=== PATIENT | female | born 1975 | race Caucasian/White ===

== ENCOUNTER 2017-08-07 16:37 | Emergency (ER) | payer MEDICAID, OTHER ==
[~2017-08-07] VITALS: Ht 162.6 cm; Wt 58.5 kg
[2017-08-07 17:46] VITALS: Ht 162.6 cm; Wt 58.5 kg
--- NOTE | 2017-08-07 18:54 | ERA ---
ER Documentation Chief Complaint Date/Time DATE: 08/07/17 TIME: 18:54 Chief Complaint SOB AND R/O UTI HPI The patient is a 42-year-old female, presenting to the ER because of fever, shortness of breath from coughing, intermittent dry cough for the last 4 days, nausea but no vomiting. She was treated for kidney infection and bronchitis about a month ago. He denies abdominal pain, dysuria, diarrhea, constipation. She does not smoke nor drink Past medical history: None Past surgical history: ROS All systems reviewed and are negative except as per history of present illness. Medications Home Meds Active Scripts Dextromethorphan Hb-Promethazine Hcl* (Promethazine DM* Syrup) 473 Ml Syrup, 10 ML PO Q6 Y for COUGH, #120 ML Prov:MONO STYLES MD 08/07/17 Ibuprofen* (Motrin*) 600 Mg Tab, 600 MG PO Q6, #30 TAB Prov:MONO STYLES MD 08/07/17 Levofloxacin* (Levaquin*) 750 Mg Tablet, 750 MG PO DAILY for 9 Days, TAB Prov:MONO STYLES MD 08/07/17 Allergies Allergies: Coded Allergies: Oxytocin (Verified Allergy, Mild, UNKNOWN, 04/14/09) Physical Exam Vitals Vital Signs Date Time Temp Pulse Resp B/P Pulse Ox O2 Delivery O2 Flow Rate FiO2 08/07/17 17:46 103.2 116 20 114/61 97 Physical Exam Const: No acute distress. Head: Atraumatic. Eyes: Normal Conjunctiva. ENT: Normal External Ears, Nose and Mouth. Neck: Full range of motion. No meningismus. Resp: Clear to auscultation bilaterally. Cardio: Regular Tachycardic Abd: Soft, non distended, normal bowel sounds, non tender. Skin: No petechiae or rashes. Back: No midline or flank tenderness. Ext: No cyanosis, or edema. Neur: Awake and alert. No focal deficit Psych: Normal Mood and Affect. Result Diagram: 08/07/17194408/07/171944 Results 24 hrs Laboratory Tests Test 08/07/17 19:45 08/07/17 20:23 White Blood Count 8.410^3/ul Red Blood Count 3.7710^6/ul Hemoglobin 11.8g/dl Hematocrit 34.8% Mean Corpuscular Volume 92.3fl Mean Corpuscular Hemoglobin 31.3pg Mean Corpuscular Hemoglobin Concent 33.9g/dl Red Cell Distribution Width 12.8% Platelet Count 32822^3/UL Mean Platelet Volume 11.0fl Neutrophils % 72.2% Lymphocytes % 15.1% Monocytes % 12.1% Eosinophils % 0.0% Basophils % 0.4% Nucleated Red Blood Cells % 0.0/100WBC Neutrophils # 6.110^3/ul Lymphocytes # 1.310^3/ul Monocytes # 1.010^3/ul Eosinophils # 0.010^3/ul Basophils # 0.010^3/ul Nucleated Red Blood Cells # 0.010^3/ul Prothrombin Time 13.5Sec Prothrombin Time Ratio 1.1 INR International Normalized Ratio 1.03 Activated Partial Thromboplast Time 33.4Sec Sodium Level 134mmol/L Potassium Level 3.6mmol/L Chloride Level 103mmol/L Carbon Dioxide Level 24mmol/L Anion Gap 11 Blood Urea Nitrogen 13mg/dl Creatinine 0.65mg/dl Glucose Level 85mg/dl Lactic Acid Level 0.6mmol/L Calcium Level 8.7mg/dl Total Bilirubin 0.2mg/dl Direct Bilirubin 0.00mg/dl Indirect Bilirubin 0.2mg/dl Aspartate Amino Transf (AST/SGOT) 21IU/L Alanine Aminotransferase (ALT/SGPT) 31IU/L Alkaline Phosphatase 73IU/L Total Protein 7.1g/dl Albumin 3.7g/dl Globulin 3.40g/dl Albumin/Globulin Ratio 1.08 Bedside Urine pH (LAB) 5.5 Bedside Urine Protein (LAB) Negative Bedside Urine Glucose (UA) 0.1% Bedside Urine Ketones (LAB) 1+ Bedside Urine Blood 3+ Bedside Urine Nitrite (LAB) Negative Bedside Urine Leukocyte Esterase (L Negative Current Medications Medications (Trade) Dose Ordered Sig/Coy Route PRN Reason Start Time Stop Time Status Last Admin Dose Admin Sodium Chloride (NS) 1,810 ml @ 1,810 mls/hr BOLUS X1 ONCE IV 08/07/17 19:00 08/07/17 19:59 DC 08/07/17 19:00 Acetaminophen (Tylenol Tab) 1,000 mg ONCE STAT PO 08/07/17 19:00 08/07/17 19:03 DC 08/07/17 20:07 Ondansetron HCl (Zofran Inj) 4 mg ONCE STAT IV 08/07/17 19:00 08/07/17 19:03 DC 08/07/17 20:07 Levofloxacin (Levaquin) 750 mg ONCE ONCE PO 08/07/17 20:30 08/07/17 20:31 DC Ketorolac Tromethamine (Toradol) 30 mg ONCE STAT IV 08/07/17 20:27 08/07/17 20:28 DC 08/07/17 20:47 Procedures/[place] [id number] Radiology Main Line: [phone] DIAGNOSTIC IMAGING REPORT Patient: TAYLER CORTEZ : 1975 Age: 42 Sex: F MR #: [id number] DOS: 08/07/17 1900 Ordering MD: MONO STYLES MD Location: [facility] Room/Bed: PROCEDURE: XR Chest. CLINICAL INDICATION: Chest pain. Possible sepsis TECHNIQUE: Portable AP erect view of the chest was obtained. COMPARISON: None. FINDINGS: The cardiomediastinal silhouette is within normal limits. Lingular infiltrate is most concerning for pneumonia. The right lung is clear. There is no evidence for pleural effusion, pneumothorax or pulmonary vascular congestion. The osseous structures are intact with no evidence for acute abnormality. RPTAT:HJJR IMPRESSION: Infiltrate within the lingula is concerning for pneumonia. Follow-up evaluation after medical therapy is recommended. Physician Jerardo Date Time Electronically viewed and signed by Physician Jerardo on 08/07/2017 20:15 JR/ CC: MONO STYLES MD EKG: Read by emergency physician Rate/Rhythm: Sinus tachycardia 116 beats/min QRS, ST, T-waves: No ST elevation, no T inversion Impression: Abnormal EKG MEDICAL MAKING DECISION: The patient is a 42-year-old female, presenting with acute pneumonia, acute dehydration. She was treated with Tylenol and for fever , normosaline 30 mL/kg IV for dehydration, Zofran 4 mg IV for nausea, Toradol 30 IV for her pain and Levaquin 750 p.o. for her anemia with good response The differential diagnoses considered include but are not limited to asthma, COPD, pneumonia, pulmonary embolus, pleural effusion, congestive heart failure. Departure Diagnosis: Primary Impression: Pneumonia Additional Impressions: Anemia Dehydration Condition: Good Comments He was discharged with Levaquin, Motrin, Phenergan DM I discussed the findings with the patient. I advised the patient to follow-up with the primary physician in about 1-2 days, sooner if needed and return if any concern. MONO DOSHI MD Aug 07, 2017 18:54
[2017-08-07] MEDS ORDERED: ACETAMINOPHEN 500 MG TAB PO STA (19:00)
[2017-08-07] MEDS ORDERED: ONDANSETRON 4 MG INJ IV STA (19:00)
[2017-08-07] MEDS ORDERED: SOD CHLORIDE 0.9% IV ONE (19:00)
[2017-08-07 19:57] LABS: BASOPHILS % 0.4 % (0.0-2.0); HEMATOCRIT 34.8 % (37.0-47.0); HEMOGLOBIN 11.8 g/dl (12.0-16.0); LYMPHOCYTES # 1.3 10^3/ul (0.8-2.9); LYMPHOCYTES % 15.1 % (15.0-51.0); MEAN CORPUSCULAR HEMOGLOBIN 31.3 pg (29.0-33.0); MEAN CORPUSCULAR HGB CONC 33.9 g/dl (32.0-37.0); MEAN CORPUSCULAR VOLUME 92.3 fl (82.0-101.0); MONOCYTES % 12.1 % (0.0-11.0); NEUTROPHIL # 6.1 10^3/ul (1.6-7.5); NEUTROPHILS % 72.2 % (39.0-77.0); PLATELET COUNT 237 10^3/UL (140-415); RED BLOOD COUNT 3.77 10^6/ul (4.20-5.40); RED CELL DISTRIBUTION WIDTH 12.8 % (11.5-14.5); WHITE BLOOD COUNT 8.4 10^3/ul (4.8-10.8)
[2017-08-07 20:14] LABS: INR 1.03; PROTIME 13.5 Sec (12.2-14.2); PT RATIO 1.1
[2017-08-07 20:15] LABS: PARTIAL THROMBOPLASTIN TIME 33.4 Sec (25.0-35.0)
[2017-08-07 20:15] LABS: URINE BLOOD (Dip) POC 3+ (NEGATIVE)
--- NOTE | 2017-08-07 20:15 | RADRPT ---
PROCEDURE: XR Chest. CLINICAL INDICATION: Chest pain. Possible sepsis TECHNIQUE: Portable AP erect view of the chest was obtained. COMPARISON: None. FINDINGS: The cardiomediastinal silhouette is within normal limits. Lingular infiltrate is most concerning fo r pneumonia. The right lung is clear. There is no evidence for pleural effusion, pneumothorax or pu lmonary vascular congestion. The osseous structures are intact with no evidence for acute abnormali ty. RPTAT:HJJR IMPRESSION: Infiltrate within the lingula is concerning for pneumonia. Follow-up evaluation after medical therap y is recommended. Physician Jerardo Date Time Electronically viewed and signed by Physician Jerardo on 08/07/2017 20:15 JR/
[2017-08-07 20:16] LABS: ALBUMIN 3.7 g/dl (3.3-4.9); ALBUMIN/GLOBULIN RATIO 1.08; BILIRUBIN,INDIRECT 0.2 mg/dl (0-1.1); BILIRUBIN,TOTAL 0.2 mg/dl (0.2-1.3); CALCIUM 8.7 mg/dl (8.4-10.2); CREATININE 0.65 mg/dl (0.44-1.00); POTASSIUM 3.6 mmol/L (3.5-5.1); TOTAL PROTEIN 7.1 g/dl (6.1-8.1)
[2017-08-07] MEDS ORDERED: IBUP-1542 PO (20:24)
[2017-08-07] MEDS ORDERED: LEVO750T25 PO (20:24)
[2017-08-07] MEDS ORDERED: D-ME473S2 PO (20:25)
[2017-08-07] MEDS ORDERED: KETOROLAC 30 MG INJ IV STA (20:27)
[2017-08-07] MEDS ORDERED: LEVOFLOXACIN 750 MG TABLET PO ONE (20:30)
[2017-08-07 21:43] VITALS: BP 101/55; PULSE 98; RESP 20; TEMP 98
== END 2017-08-07 21:45 | disposition home or self-care (01) ==
LOC: FTE 16:37
DX: J18.9 Pneumonia, unspecified organism (principal); D64.9 Anemia, unspecified; E86.0 Dehydration
CPT/HCPCS: 36415; 71010; 80053; 81003; 83605; 85025; 85610; 85730; 87040; 87086; 93005; 96374; 96375; J1885; J2405; J7030; Z7502; Z7610